=== PATIENT | male | born 1955 | race Two or more races ===

== ENCOUNTER 2016-05-18 12:57 | Emergency (ER) | payer OTHER ==
[~2016-05-18] VITALS: Ht 170.2 cm; Wt 90.7 kg
[~2016-05-18 12:57] MED LIST: ATOR20TA50 PO; CLOP75TA28 PO; HYDR25TA4 PO; LIS20T PO
[2016-05-18 14:30] VITALS: BP 145/83
== END 2016-05-18 15:02 | disposition home or self-care (01) ==
LOC: ER 12:57
DX: M10.062 Idiopathic gout, left knee (principal); E78.5 Hyperlipidemia, unspecified; I10 Essential (primary) hypertension; Z88.6 Allergy status to analgesic agent

== ENCOUNTER → 2016-06-05 | Outpatient (CLI) | payer OTHER ==
[2016-06-05 09:39] LABS: Basophils # (auto) 0 uL; Basophils % (auto) 0.4 % (0.0-2.0); Eosinophils # (auto) 0.1 uL; Eosinophils % (auto) 1.5 % (0.0-7.0); Hematocrit 45.6 % (41.0-53.0); Hemoglobin 15.3 g/dL (13.5-17.5); Lymphocytes # (auto) 1.9 uL; Lymphocytes % (auto) 23.3 % (10.0-50.0); Mean Corpuscular Hemoglobin 29.9 pg (28.0-32.0); Mean Corpuscular Hgb Conc. 33.6 g/dL (32.0-36.0); Mean Corpuscular Volume 88.8 fL (80.0-100.0); Mean Platelet Volume 9.8 fL (7.4-10.4); Monocytes # (auto) 0.7 uL; Monocytes % (auto) 8.9 % (0.0-12.0); Neutrophils # (auto) 5.4 uL; Neutrophils % (auto) 65.9 % (37.0-80.0); Platelet Count (auto) 267 10^3/uL (140-450); Red Cell Distribution Width 12.9 % (11.6-16.0); White Blood Cell 8.2 10^3/uL (4.4-10.8)
[2016-06-05 09:42] LABS: Urine Bilirubin Negative (Negative); Urine Blood Negative /uL (Negative); Urine Color Yellow (Yellow); Urine Glucose Normal (Normal); Urine Ketone Negative (Negative); Urine Mucus FEW (None Seen); Urine Nitrite Negative (Negative); Urine RBC <1 /hpf (0 - 3); Urine Squamous Epithelial Cell FEW /hpf (<5); Urine Urobilinogen Normal (Negative)
[2016-06-05 10:09] LABS: Albumin 3.8 g/dL (3.4-5.0); BUN/Creatinine Ratio 24.2; Bilirubin, Total 0.9 mg/dL (0.2-1.0); Calcium 8.9 mg/dL (8.5-10.1); Potassium 4.1 mmol/L (3.5-5.1); Uric Acid 7.9 mg/dL (3.5-7.2)
== END | disposition home or self-care (01) ==
LOC: LAB 08:01
DX: I10 Essential (primary) hypertension (principal); Z12.5 Encounter for screening for malignant neoplasm of prostate; Z12.11 Encounter for screening for malignant neoplasm of colon
CPT/HCPCS: 36415; 80053; 80061; 81001; 82270; 84153; 84443; 84550; 85025

== ENCOUNTER 2022-01-22 02:57 | Inpatient (IN) | payer OTHER ==
[~2022-01-22] VITALS: Ht 170.2 cm; Wt 85.3 kg
[2022-01-22] VITALS (80 sets, daily range): BP systolic 85–137; BP diastolic 54–97
[2022-01-22] MEDS ORDERED: ETOMIDATE (2MG/ML) 20ML VIAL IV ONE ×2 (03:00→03:08)
[2022-01-22] MEDS ORDERED: CALCIUM CHL 100MG/ML 1,000 MG in D5W 5% 100 ML IV ONE (03:00)
[2022-01-22] MEDS ORDERED: ATROPINE SULF 1 MG/10ml SYR IV ONE (03:00)
[2022-01-22] MEDS ORDERED: ROCURONIUM 10MG/ML 10ML VIAL IV ONE (03:00)
[2022-01-22] MEDS ORDERED: ATROPINE SULFATE 1 MG/1 ML VIAL ONE (03:02)
[2022-01-22] MEDS ORDERED: SODIUM BICARBONATE 8.4% INJ 50ML SYRINGE ONE (03:04)
[2022-01-22] MEDS ORDERED: CALCIUM CHLOR(10%) 100MG/ML 10ML SYRINGE IV ONE (03:04)
[2022-01-22] MEDS ORDERED: SUCCINYLCHOLINE CHLORIDE 20 MG/ML 10ML VIAL IV ONE ×2 (03:08→03:45)
[2022-01-22] MEDS ORDERED: MIDAZOLAM DRIP 50 mg/50mL 50 ML IV ONE (03:16)
[2022-01-22] MEDS: MIDAZOLAM DRIP 50 mg/50mL 50 ML IV SCH ×4 (03:20→20:00)
[2022-01-22] MEDS ORDERED: SODIUM BICARBONATE 8.4 % INJ 50ML VIAL IV ONE (03:30)
[2022-01-22] MEDS ORDERED: HEPARIN SODIUM (PORCINE) 5000 UNITS/ML 1ML VIAL IV ONE (03:30)
[2022-01-22 03:37] LABS: Basophils # (auto) 0.1 10 ^3/uL (0-0.2); Basophils % (auto) 0.8 % (0.0-2.0); Eosinophils # (auto) 0.1 10 ^3/uL (0-0.8); Eosinophils % (auto) 0.8 % (0.0-7.0); Hematocrit 43.1 % (41.0-53.0); Hemoglobin 14.8 g/dL (13.5-17.5); Lymphocytes # (auto) 2.3 10 ^3/uL (0.4-5.4); Lymphocytes % (auto) 13.7 % (10.0-50.0); Mean Corpuscular Hemoglobin 30.1 pg (28.0-32.0); Mean Corpuscular Hgb Conc. 34.4 g/dL (32.0-36.0); Mean Corpuscular Volume 87.3 fL (80.0-100.0); Monocytes # (auto) 1.7 10 ^3/uL (0-1.3); Monocytes % (auto) 10.1 % (0.0-12.0); Neutrophils # (auto) 12.6 10 ^3/uL (1.6-8.6); Neutrophils % (auto) 74.6 % (37.0-80.0); Nucleated Red Blood Cells % 0.1 %; Red Blood Cells 4.93 10^6/uL (4.5-5.90); White Blood Cell 16.8 10^3/uL (4.4-10.8)
[2022-01-22] MEDS ORDERED: LIDOCAINE 2%HCL (LOCAL ANESTH.) INJ 20ML MDV ONE (03:52)
[2022-01-22] MEDS ORDERED: IODIXANOL 320MG/ML 100ML BTL IV ONE ×2 (03:52→05:06)
[2022-01-22 03:57] LABS: Albumin 3.1 g/dL (3.4-5.0); BUN/Creatinine Ratio 11.9; Potassium 3.6 mmol/L (3.5-5.1)
[2022-01-22 04:00] LABS: Lactic Acid w/Reflex 2.7 mmol/L (0.4-2.0)
[2022-01-22 04:10] LABS: INR 1.03 (0.9-1.15); Partial Thromboplastin Time 25.7 sec (24.6-33.4)
[2022-01-22] MEDS ORDERED: SODIUM CHL 0.9% 50 ML ONE (04:16)
[2022-01-22] MEDS ORDERED: ANGIOMAX 250 MG VIAL IV ONE (04:16)
[2022-01-22] MEDS ORDERED: ATROPINE SULF 1 MG/10ml SYR ONE (04:21)
[2022-01-22 04:22] LABS: Bilirubin, Total 0.7 mg/dL (0.2-1.0); Total Protein 6.3 g/dL (6.4-8.2)
[2022-01-22] MEDS ORDERED: niCARdipine 25 MG/10 ML VIAL IV ONE (04:41)
[2022-01-22] MEDS ORDERED: MORPHINE SULFATE INJ 2 MG/ml SYRG IV PRN (05:00)
[2022-01-22] MEDS ORDERED: NITROGLYCERIN 0.4 MG SL TAB SL PRN (05:00)
[2022-01-22] MEDS ORDERED: fentaNYL CITRATE 100 MCG/2 ML VL ONE (05:01)
[2022-01-22] MEDS ORDERED: NOREPINEPHRINE 8 MG/250ML KIT 250 ML IV ONE (05:09)
[2022-01-22] MEDS ORDERED: TICAGRELOR 90 MG TAB ONE ×2 (05:25→05:28)
[2022-01-22] MEDS ORDERED: NOREPINEPHRINE 8 MG/250ML KIT 250 ML IV SCH (05:30)
[2022-01-22] MEDS: SODIUM CHLORIDE 0.9% 1,000 ML IV SCH ×2 (05:45→12:33)
[2022-01-22] MEDS ORDERED: MIDAZOLAM HCL 2MG/2ML 2ml VIAL (1mg/ml) IV PRN (05:45)
[2022-01-22] MEDS: NOREPINEPHRINE 8 MG/250ML KIT 250 ML IV SCH (05:55)
[2022-01-22] MEDS: PIPERACILLIN-TAZOB 3.375GM 100 ML IV SCH ×3 (06:00→22:01)
[2022-01-22] MEDS: fentaNYL Drip 2500mCg/250mlNS 250 ML IV SCH (06:10)
[2022-01-22] MEDS: ENOXAPARIN SOD 40 MG/0.4 ML SYRINGE SC SCH (09:54)
[2022-01-22] MEDS: PANTOPRAZOLE 40 MG/10 ML VIAL INJ IV SCH ×2 (09:54→22:01)
[2022-01-22] MEDS ORDERED: TICAGRELOR 90 MG TAB PO SCH (10:00)
[2022-01-22] MEDS: TICAGRELOR 90 MG TAB GT SCH ×2 (10:00→22:01)
[2022-01-23] VITALS (101 sets, daily range): BP systolic 84–157; BP diastolic 51–91
[2022-01-23] MEDS: MIDAZOLAM DRIP 50 mg/50mL 50 ML IV SCH ×2 (00:32→06:32)
[2022-01-23] MEDS: SODIUM CHLORIDE 0.9% 1,000 ML IV SCH ×3 (00:40→16:49)
[2022-01-23 04:15] LABS: Basophils # (auto) 0 10 ^3/uL (0-0.2); Basophils % (auto) 0.2 % (0.0-2.0); Eosinophils # (auto) 0 10 ^3/uL (0-0.8); Eosinophils % (auto) 0.3 % (0.0-7.0); Hematocrit 38.7 % (41.0-53.0); Hemoglobin 13.1 g/dL (13.5-17.5); Lymphocytes # (auto) 1.2 10 ^3/uL (0.4-5.4); Lymphocytes % (auto) 10.5 % (10.0-50.0); Mean Corpuscular Hemoglobin 30.2 pg (28.0-32.0); Mean Corpuscular Hgb Conc. 33.9 g/dL (32.0-36.0); Mean Corpuscular Volume 89.1 fL (80.0-100.0); Monocytes # (auto) 1.5 10 ^3/uL (0-1.3); Monocytes % (auto) 13.2 % (0.0-12.0); Neutrophils # (auto) 8.4 10 ^3/uL (1.6-8.6); Neutrophils % (auto) 75.8 % (37.0-80.0); Red Blood Cells 4.35 10^6/uL (4.5-5.90); Red Cell Distribution Width 13.1 % (11.8-14.3); White Blood Cell 11.1 10^3/uL (4.4-10.8)
[2022-01-23 04:28] LABS: BUN/Creatinine Ratio 16.4; Calcium 7.7 mg/dL (8.5-10.1); Potassium 4.3 mmol/L (3.5-5.1)
[2022-01-23 04:30] LABS: Bilirubin, Total 1.3 mg/dL (0.2-1.0); Total Protein 5.7 g/dL (6.4-8.2)
[2022-01-23] MEDS: fentaNYL Drip 2500mCg/250mlNS 250 ML IV SCH (05:10)
[2022-01-23] MEDS: NOREPINEPHRINE 8 MG/250ML KIT 250 ML IV SCH (05:11)
[2022-01-23] MEDS: PIPERACILLIN-TAZOB 3.375GM 100 ML IV SCH ×3 (05:32→21:43)
[2022-01-23] MEDS ORDERED: SODIUM CHLORIDE 0.9% 2,000 ML IV ONE (09:30)
[2022-01-23] MEDS: ENOXAPARIN SOD 40 MG/0.4 ML SYRINGE SC SCH (09:58)
[2022-01-23] MEDS: PANTOPRAZOLE 40 MG/10 ML VIAL INJ IV SCH ×2 (09:58→21:43)
[2022-01-23] MEDS: TICAGRELOR 90 MG TAB GT SCH ×2 (09:59→21:43)
[2022-01-23] MEDS ORDERED: ACETAMINOPHEN 650 mg PER 20.3 mL UD PO PRN (17:45)
[2022-01-23] MEDS: ACETAMINOPHEN 650 mg PER 20.3 mL UD PO PRN (18:19)
[2022-01-24] VITALS (99 sets, daily range): BP systolic 76–158; BP diastolic 44–92
[2022-01-24] MEDS: SODIUM CHLORIDE 0.9% 1,000 ML IV SCH ×3 (00:28→18:10)
[2022-01-24] MEDS: NOREPINEPHRINE 8 MG/250ML KIT 250 ML IV SCH (02:16)
[2022-01-24] MEDS: fentaNYL Drip 2500mCg/250mlNS 250 ML IV SCH ×3 (02:17→20:05)
[2022-01-24 04:19] LABS: Basophils # (auto) 0 10 ^3/uL (0-0.2); Basophils % (auto) 0.3 % (0.0-2.0); Eosinophils # (auto) 0 10 ^3/uL (0-0.8); Eosinophils % (auto) 0.5 % (0.0-7.0); Hematocrit 35.6 % (41.0-53.0); Hemoglobin 12.2 g/dL (13.5-17.5); Lymphocytes # (auto) 0.8 10 ^3/uL (0.4-5.4); Lymphocytes % (auto) 9.4 % (10.0-50.0); Mean Corpuscular Hemoglobin 30.6 pg (28.0-32.0); Mean Corpuscular Hgb Conc. 34.2 g/dL (32.0-36.0); Mean Corpuscular Volume 89.3 fL (80.0-100.0); Monocytes # (auto) 0.9 10 ^3/uL (0-1.3); Monocytes % (auto) 11.6 % (0.0-12.0); Neutrophils # (auto) 6.3 10 ^3/uL (1.6-8.6); Neutrophils % (auto) 78.2 % (37.0-80.0); Red Blood Cells 3.98 10^6/uL (4.5-5.90); Red Cell Distribution Width 13.1 % (11.8-14.3); White Blood Cell 8.1 10^3/uL (4.4-10.8)
[2022-01-24 04:44] LABS: Albumin 2.5 g/dL (3.4-5.0); BUN/Creatinine Ratio 31.1; Calcium 7.1 mg/dL (8.5-10.1); Potassium 4.1 mmol/L (3.5-5.1)
[2022-01-24 04:46] LABS: Bilirubin, Total 1.1 mg/dL (0.2-1.0); Total Protein 5.1 g/dL (6.4-8.2)
[2022-01-24] MEDS: PIPERACILLIN-TAZOB 3.375GM 100 ML IV SCH ×3 (05:45→22:19)
[2022-01-24] MEDS ORDERED: ATROPINE SULFATE 1 MG/1 ML VIAL ONE (06:39)
[2022-01-24] MEDS: PANTOPRAZOLE 40 MG/10 ML VIAL INJ IV SCH ×2 (10:18→22:19)
[2022-01-24] MEDS: TICAGRELOR 90 MG TAB GT SCH ×2 (10:19→22:19)
[2022-01-24] MEDS: ENOXAPARIN SOD 40 MG/0.4 ML SYRINGE SC SCH (10:19)
[2022-01-24] MEDS: ACETAMINOPHEN 650 mg PER 20.3 mL UD PO PRN (16:05)
[2022-01-25] VITALS (92 sets, daily range): BP systolic 91–218; BP diastolic 55–110
[2022-01-25] MEDS: SODIUM CHLORIDE 0.9% 1,000 ML IV SCH ×4 (01:00→21:45)
[2022-01-25] MEDS: NOREPINEPHRINE 8 MG/250ML KIT 250 ML IV SCH (05:31)
[2022-01-25 05:34] LABS: Basophils # (auto) 0 10 ^3/uL (0-0.2); Basophils % (auto) 0.2 % (0.0-2.0); Eosinophils # (auto) 0.1 10 ^3/uL (0-0.8); Eosinophils % (auto) 0.5 % (0.0-7.0); Hematocrit 36.6 % (41.0-53.0); Hemoglobin 12.4 g/dL (13.5-17.5); Lymphocytes # (auto) 1.1 10 ^3/uL (0.4-5.4); Mean Corpuscular Hemoglobin 30.6 pg (28.0-32.0); Mean Corpuscular Hgb Conc. 33.9 g/dL (32.0-36.0); Mean Corpuscular Volume 90.3 fL (80.0-100.0); Monocytes # (auto) 1.4 10 ^3/uL (0-1.3); Monocytes % (auto) 14.3 % (0.0-12.0); Neutrophils # (auto) 7.4 10 ^3/uL (1.6-8.6); Red Blood Cells 4.05 10^6/uL (4.5-5.90); White Blood Cell 10.1 10^3/uL (4.4-10.8)
[2022-01-25] MEDS: PIPERACILLIN-TAZOB 3.375GM 100 ML IV SCH (06:00)
[2022-01-25 06:04] LABS: Albumin 2.3 g/dL (3.4-5.0); Calcium 7.2 mg/dL (8.5-10.1); Potassium 4.3 mmol/L (3.5-5.1)
[2022-01-25 06:09] LABS: BUN/Creatinine Ratio 26.4
[2022-01-25 06:10] LABS: Bilirubin, Total 0.8 mg/dL (0.2-1.0); Total Protein 5.7 g/dL (6.4-8.2)
[2022-01-25] MEDS: fentaNYL Drip 2500mCg/250mlNS 250 ML IV SCH ×2 (07:08→20:09)
[2022-01-25] MEDS: MIDAZOLAM DRIP 50 mg/50mL 50 ML IV SCH ×3 (07:39→21:15)
[2022-01-25] MEDS: TICAGRELOR 90 MG TAB GT SCH ×2 (09:53→22:06)
[2022-01-25] MEDS: ENOXAPARIN SOD 40 MG/0.4 ML SYRINGE SC SCH (09:53)
[2022-01-25] MEDS: PANTOPRAZOLE 40 MG/10 ML VIAL INJ IV SCH ×2 (09:53→22:07)
[2022-01-25] MEDS: levoFLOXacin 750MG 150 ML IV SCH (11:00)
[2022-01-25] MEDS: ACETAMINOPHEN 650 mg PER 20.3 mL UD PO PRN (16:05)
[2022-01-25] MEDS: chlordiazePOXIDE HCL 25 MG CAP PO SCH (22:07)
[2022-01-26] VITALS (107 sets, daily range): BP systolic 106–186; BP diastolic 57–96
[2022-01-26] MEDS: MIDAZOLAM DRIP 50 mg/50mL 50 ML IV SCH ×2 (01:37→07:15)
[2022-01-26] MEDS: SODIUM CHLORIDE 0.9% 1,000 ML IV SCH ×3 (01:48→21:45)
[2022-01-26 03:38] LABS: Basophils # (auto) 0 10 ^3/uL (0-0.2); Basophils % (auto) 0.4 % (0.0-2.0); Eosinophils # (auto) 0.1 10 ^3/uL (0-0.8); Eosinophils % (auto) 1.6 % (0.0-7.0); Hematocrit 32.7 % (41.0-53.0); Hemoglobin 11.3 g/dL (13.5-17.5); Lymphocytes # (auto) 0.5 10 ^3/uL (0.4-5.4); Lymphocytes % (auto) 8.6 % (10.0-50.0); Mean Corpuscular Hemoglobin 31.2 pg (28.0-32.0); Mean Corpuscular Hgb Conc. 34.7 g/dL (32.0-36.0); Monocytes # (auto) 0.6 10 ^3/uL (0-1.3); Monocytes % (auto) 11.9 % (0.0-12.0); Neutrophils # (auto) 4.2 10 ^3/uL (1.6-8.6); Neutrophils % (auto) 77.5 % (37.0-80.0); Nucleated Red Blood Cells % 0.1 %; Red Blood Cells 3.64 10^6/uL (4.5-5.90); Red Cell Distribution Width 12.9 % (11.8-14.3); White Blood Cell 5.4 10^3/uL (4.4-10.8)
[2022-01-26 03:54] LABS: Albumin 2.1 g/dL (3.4-5.0); Potassium 4.1 mmol/L (3.5-5.1)
[2022-01-26 03:58] LABS: BUN/Creatinine Ratio 30.8; Bilirubin, Total 0.7 mg/dL (0.2-1.0); Total Protein 4.5 g/dL (6.4-8.2)
[2022-01-26] MEDS: NOREPINEPHRINE 8 MG/250ML KIT 250 ML IV SCH (05:45)
[2022-01-26] MEDS: chlordiazePOXIDE HCL 25 MG CAP PO SCH ×3 (06:10→21:45)
[2022-01-26] MEDS: TICAGRELOR 90 MG TAB GT SCH ×2 (10:06→21:44)
[2022-01-26] MEDS: PANTOPRAZOLE 40 MG/10 ML VIAL INJ IV SCH (10:07)
[2022-01-26] MEDS: ENOXAPARIN SOD 40 MG/0.4 ML SYRINGE SC SCH (10:07)
[2022-01-26] MEDS: levoFLOXacin 750MG 150 ML IV SCH (10:07)
[2022-01-26] MEDS: hydrALAZINE HCL 20 MG/ML VL IV PRN ×3 (12:48→21:44)
[2022-01-26] MEDS: ACETAMINOPHEN 650 mg PER 20.3 mL UD PO PRN (17:28)
[2022-01-27] VITALS (88 sets, daily range): BP systolic 116–186; BP diastolic 62–109
[2022-01-27] MEDS: MIDAZOLAM DRIP 50 mg/50mL 50 ML IV SCH ×3 (03:15→19:58)
[2022-01-27] MEDS: fentaNYL Drip 2500mCg/250mlNS 250 ML IV SCH (05:00)
[2022-01-27] MEDS: NOREPINEPHRINE 8 MG/250ML KIT 250 ML IV SCH (05:45)
[2022-01-27] MEDS: SODIUM CHLORIDE 0.9% 1,000 ML IV SCH ×3 (05:45→21:46)
[2022-01-27] MEDS: chlordiazePOXIDE HCL 25 MG CAP PO SCH ×4 (06:00→22:00)
[2022-01-27] MEDS: hydrALAZINE HCL 20 MG/ML VL IV PRN (06:26)
[2022-01-27] MEDS ORDERED: ISOPROTERENOL HCL INJECTION 1 MG in D5W 5% 250 ML IV SCH (07:15)
[2022-01-27 08:52] LABS: INR 1.17 (0.9-1.15); Partial Thromboplastin Time 29.3 sec (24.6-33.4)
[2022-01-27] MEDS: TICAGRELOR 90 MG TAB GT SCH ×2 (10:00→21:44)
[2022-01-27] MEDS: ENOXAPARIN SOD 40 MG/0.4 ML SYRINGE SC SCH (10:00)
[2022-01-27] MEDS: levoFLOXacin 750MG 150 ML IV SCH (10:56)
[2022-01-27] MEDS: PANTOPRAZOLE 40 MG/10 ML VIAL INJ IV SCH (10:57)
[2022-01-27] MEDS ORDERED: LIDOCAINE 2%HCL (LOCAL ANESTH.) INJ 10ml MDV ONE (15:08)
[2022-01-27] MEDS ORDERED: VANCOMYCIN HCL 1000 MG VL ONE ×2 (15:44→15:47)
[2022-01-27] MEDS ORDERED: VANCOMYCIN 1GM/250ML 250 ML IV ONE (15:44)
[2022-01-27] MEDS ORDERED: IOHEXOL 350 MG/ML 100ML IJ ONE (16:01)
[2022-01-27] MEDS: VANCOMYCIN 1GM/250ML 250 ML IV SCH (21:45)
[2022-01-28] VITALS (103 sets, daily range): BP systolic 114–187; BP diastolic 22–98
[2022-01-28] MEDS: fentaNYL Drip 2500mCg/250mlNS 250 ML IV SCH ×2 (00:19→19:00)
[2022-01-28] MEDS: hydrALAZINE HCL 20 MG/ML VL IV PRN ×3 (03:06→18:57)
[2022-01-28] MEDS: MIDAZOLAM DRIP 50 mg/50mL 50 ML IV SCH ×3 (03:07→16:31)
[2022-01-28 04:45] LABS: Basophils # (auto) 0 10 ^3/uL (0-0.2); Basophils % (auto) 0.3 % (0.0-2.0); Eosinophils # (auto) 0.2 10 ^3/uL (0-0.8); Hematocrit 35.6 % (41.0-53.0); Hemoglobin 12.2 g/dL (13.5-17.5); Lymphocytes # (auto) 0.7 10 ^3/uL (0.4-5.4); Lymphocytes % (auto) 8.9 % (10.0-50.0); Mean Corpuscular Hemoglobin 30.3 pg (28.0-32.0); Mean Corpuscular Hgb Conc. 34.2 g/dL (32.0-36.0); Mean Corpuscular Volume 88.5 fL (80.0-100.0); Monocytes # (auto) 0.9 10 ^3/uL (0-1.3); Monocytes % (auto) 12.3 % (0.0-12.0); Neutrophils # (auto) 5.8 10 ^3/uL (1.6-8.6); Neutrophils % (auto) 76.5 % (37.0-80.0); Red Blood Cells 4.02 10^6/uL (4.5-5.90); Red Cell Distribution Width 12.9 % (11.8-14.3); White Blood Cell 7.6 10^3/uL (4.4-10.8)
[2022-01-28 04:59] LABS: Potassium 3.5 mmol/L (3.5-5.1)
[2022-01-28 05:00] LABS: Calcium 7.8 mg/dL (8.5-10.1)
[2022-01-28] MEDS: chlordiazePOXIDE HCL 25 MG CAP PO SCH ×2 (05:27→10:02)
[2022-01-28] MEDS: NOREPINEPHRINE 8 MG/250ML KIT 250 ML IV SCH (05:45)
[2022-01-28] MEDS: SODIUM CHLORIDE 0.9% 1,000 ML IV SCH ×3 (05:45→21:54)
[2022-01-28] MEDS: levoFLOXacin 750MG 150 ML IV SCH (10:00)
[2022-01-28] MEDS: TICAGRELOR 90 MG TAB GT SCH ×2 (10:12→21:54)
[2022-01-28] MEDS: VANCOMYCIN 1GM/250ML 250 ML IV SCH (10:12)
[2022-01-28] MEDS: PANTOPRAZOLE 40 MG/10 ML VIAL INJ IV SCH (10:12)
[2022-01-28] MEDS: ENOXAPARIN SOD 40 MG/0.4 ML SYRINGE SC SCH (10:12)
[2022-01-28] MEDS ORDERED: FUROSEMIDE 40 MG/4 ML VIAL IV ONE (10:15)
[2022-01-28] MEDS ORDERED: FUROSEMIDE 40 MG/4 ML VIAL ONE (10:17)
[2022-01-29] VITALS (102 sets, daily range): BP systolic 106–183; BP diastolic 58–99
[2022-01-29] MEDS: hydrALAZINE HCL 20 MG/ML VL IV PRN ×3 (00:52→22:06)
[2022-01-29] MEDS: MIDAZOLAM DRIP 50 mg/50mL 50 ML IV SCH ×2 (00:52→06:26)
[2022-01-29 04:41] LABS: Basophils # (auto) 0 10 ^3/uL (0-0.2); Basophils % (auto) 0.1 % (0.0-2.0); Eosinophils # (auto) 0.1 10 ^3/uL (0-0.8); Eosinophils % (auto) 0.7 % (0.0-7.0); Hematocrit 32.2 % (41.0-53.0); Hemoglobin 11.2 g/dL (13.5-17.5); Lymphocytes # (auto) 0.5 10 ^3/uL (0.4-5.4); Lymphocytes % (auto) 6.7 % (10.0-50.0); Mean Corpuscular Hemoglobin 30.6 pg (28.0-32.0); Mean Corpuscular Hgb Conc. 34.8 g/dL (32.0-36.0); Mean Corpuscular Volume 87.9 fL (80.0-100.0); Monocytes # (auto) 0.7 10 ^3/uL (0-1.3); Neutrophils # (auto) 6.3 10 ^3/uL (1.6-8.6); Neutrophils % (auto) 83.5 % (37.0-80.0); Red Blood Cells 3.66 10^6/uL (4.5-5.90); Red Cell Distribution Width 12.8 % (11.8-14.3); White Blood Cell 7.5 10^3/uL (4.4-10.8)
[2022-01-29 04:57] LABS: Calcium 7.4 mg/dL (8.5-10.1); Potassium 3.1 mmol/L (3.5-5.1)
[2022-01-29 04:59] LABS: BUN/Creatinine Ratio 28.6
[2022-01-29] MEDS: SODIUM CHLORIDE 0.9% 1,000 ML IV SCH (05:45)
[2022-01-29] MEDS: NOREPINEPHRINE 8 MG/250ML KIT 250 ML IV SCH (05:45)
[2022-01-29] MEDS: PANTOPRAZOLE 40 MG/10 ML VIAL INJ IV SCH (10:04)
[2022-01-29] MEDS: ENOXAPARIN SOD 40 MG/0.4 ML SYRINGE SC SCH (10:04)
[2022-01-29] MEDS: TICAGRELOR 90 MG TAB GT SCH ×2 (10:05→21:17)
[2022-01-29] MEDS: levoFLOXacin 750MG 150 ML IV SCH (10:05)
[2022-01-29] MEDS: POTASSIUM CHL 20MEQ/100ML 100 ML IV SCH ×2 (10:32→12:09)
[2022-01-29] MEDS ORDERED: TPN PER PHARMACY 0 ML IV SCH (19:30)
[2022-01-29] MEDS ORDERED: AMINO ACID INFUSION IN D10W 1,000 ML IV NR (21:00)
[2022-01-30] VITALS (85 sets, daily range): BP systolic 118–219; BP diastolic 64–108
[2022-01-30] MEDS ORDERED: DEXTROSE (50%) 50ML SYRG IV SCH
[2022-01-30] MEDS: InsuLIN REG 1unit/0.01ml Soln (100units/ml) SC SCH ×4 (00:11→18:41)
[2022-01-30] MEDS: ACCU-CHEK COMFORT CURVE STRIP VI SCH ×4 (00:11→18:02)
[2022-01-30] MEDS: fentaNYL Drip 2500mCg/250mlNS 250 ML IV SCH (01:10)
[2022-01-30] MEDS: MIDAZOLAM DRIP 50 mg/50mL 50 ML IV SCH ×3 (01:15→21:15)
[2022-01-30 04:51] LABS: Basophils # (auto) 0.1 10 ^3/uL (0-0.2); Basophils % (auto) 0.5 % (0.0-2.0); Eosinophils # (auto) 0.2 10 ^3/uL (0-0.8); Eosinophils % (auto) 1.7 % (0.0-7.0); Hematocrit 36.1 % (41.0-53.0); Hemoglobin 12.2 g/dL (13.5-17.5); Lymphocytes # (auto) 0.8 10 ^3/uL (0.4-5.4); Lymphocytes % (auto) 7.7 % (10.0-50.0); Mean Corpuscular Hemoglobin 30.1 pg (28.0-32.0); Mean Corpuscular Hgb Conc. 33.8 g/dL (32.0-36.0); Monocytes # (auto) 1.1 10 ^3/uL (0-1.3); Monocytes % (auto) 10.3 % (0.0-12.0); Neutrophils # (auto) 8.5 10 ^3/uL (1.6-8.6); Neutrophils % (auto) 79.8 % (37.0-80.0); Nucleated Red Blood Cells % 0.2 %; Red Blood Cells 4.05 10^6/uL (4.5-5.90); Red Cell Distribution Width 13.1 % (11.8-14.3); White Blood Cell 10.7 10^3/uL (4.4-10.8)
[2022-01-30] MEDS: NOREPINEPHRINE 8 MG/250ML KIT 250 ML IV SCH (05:45)
[2022-01-30 05:50] LABS: BUN/Creatinine Ratio 25.9; Potassium 3.4 mmol/L (3.5-5.1)
[2022-01-30 05:51] LABS: Bilirubin, Total 2.7 mg/dL (0.2-1.0); Calcium 7.7 mg/dL (8.5-10.1); Magnesium 2.1 mg/dL (1.6-2.6); Phosphorus 2.1 mg/dL (2.5-4.90); Total Protein 5.1 g/dL (6.4-8.2)
[2022-01-30] MEDS: TICAGRELOR 90 MG TAB GT SCH ×2 (10:00→22:00)
[2022-01-30 10:38] LABS: INR 1.11 (0.9-1.15); Partial Thromboplastin Time 23.9 sec (24.6-33.4)
[2022-01-30] MEDS: PANTOPRAZOLE 40 MG/10 ML VIAL INJ IV SCH (10:47)
[2022-01-30] MEDS: levoFLOXacin 750MG 150 ML IV SCH (10:48)
[2022-01-30] MEDS ORDERED: FUROSEMIDE 40 MG/4 ML VIAL IV ONE (11:15)
[2022-01-30] MEDS: POTASSIUM CHL 20MEQ/100ML 100 ML IV SCH ×2 (13:00→15:22)
[2022-01-30] MEDS ORDERED: LIDOCAINE 1% (LOCAL ANESTH.) PF 5ml SDV ID ONE (13:00)
[2022-01-30] MEDS ORDERED: SODIUM PHOSPH 24MEQ(18MMOL) IN NS 100 ML IV ONE (14:00)
[2022-01-30] MEDS ORDERED: chlorproMAZINE HCL 25 MG/1 ML AMP IV ONE (14:30)
[2022-01-30] MEDS: hydrALAZINE HCL 20 MG/ML VL IV PRN ×2 (14:42→18:50)
[2022-01-30] MEDS: ENOXAPARIN SOD 40 MG/0.4 ML SYRINGE SC SCH (15:38)
[2022-01-30] MEDS ORDERED: PPN PER PHARMACY IV NR ×8 (20:00)
[2022-01-30] MEDS: SODIUM CHLOR 0.9% PF (SALINE LOCK) 10ML VIAL/SYR IV SCH (22:00)
[2022-01-31] VITALS (29 sets, daily range): BP systolic 128–196; BP diastolic 60–105
[2022-01-31] MEDS: ACCU-CHEK COMFORT CURVE STRIP VI SCH ×5 (00:15→23:49)
[2022-01-31] MEDS: InsuLIN REG 1unit/0.01ml Soln (100units/ml) SC SCH ×5 (00:19→23:50)
[2022-01-31] MEDS: hydrALAZINE HCL 20 MG/ML VL IV PRN ×2 (00:34→08:59)
[2022-01-31] MEDS: ACETAMINOPHEN 650 mg PER 20.3 mL UD PO PRN (02:36)
[2022-01-31 03:53] LABS: Albumin 2.3 g/dL (3.4-5.0); Calcium 7.8 mg/dL (8.5-10.1); Magnesium 2.1 mg/dL (1.6-2.6); Potassium 3.3 mmol/L (3.5-5.1)
[2022-01-31 03:56] LABS: BUN/Creatinine Ratio 18.8; Bilirubin, Total 3.8 mg/dL (0.2-1.0); Phosphorus 1.8 mg/dL (2.5-4.90); Total Protein 5.6 g/dL (6.4-8.2)
[2022-01-31] MEDS: POTASSIUM CHL 20MEQ/100ML 100 ML IV PRN ×2 (04:52→06:53)
[2022-01-31] MEDS: fentaNYL Drip 2500mCg/250mlNS 250 ML IV SCH (05:00)
[2022-01-31] MEDS: NOREPINEPHRINE 8 MG/250ML KIT 250 ML IV SCH (05:45)
[2022-01-31] MEDS: MIDAZOLAM DRIP 50 mg/50mL 50 ML IV SCH ×2 (07:15→16:18)
[2022-01-31] MEDS: SODIUM CHLOR 0.9% PF (SALINE LOCK) 10ML VIAL/SYR IV SCH ×2 (10:00→21:32)
[2022-01-31] MEDS: TICAGRELOR 90 MG TAB GT SCH ×2 (10:00→21:31)
[2022-01-31] MEDS ORDERED: chlorproMAZINE HCL 25 MG/1 ML AMP IV ONE (10:30)
[2022-01-31] MEDS ORDERED: SODIUM CHL 0.9% IV ONE (10:45)
[2022-01-31] MEDS ORDERED: [UNRECOGNIZED DRUG - OTHER] IV ONE (10:45)
[2022-01-31] MEDS: PANTOPRAZOLE 40 MG/10 ML VIAL INJ IV SCH (10:52)
[2022-01-31] MEDS: levoFLOXacin 750MG 150 ML IV SCH (10:52)
[2022-01-31] MEDS: ENOXAPARIN SOD 40 MG/0.4 ML SYRINGE SC SCH (10:53)
[2022-01-31] MEDS: METOPROLOL TARTRATE 50 MG TAB PO SCH (18:05)
[2022-01-31] MEDS ORDERED: POTASSIUM PHOSPHATE 44 MEQ in D5W 5% 250 ML IV ONE (18:30)
[2022-01-31] MEDS: LABETALOL HCL 5 MG/ML 4ML SYRINGE IV PRN ×2 (18:43→22:16)
[2022-01-31] MEDS ORDERED: TPN PER PHARMACY IV NR ×9 (20:00)
[2022-01-31] MEDS ORDERED: METOPROLOL TARTRATE 50 MG TAB PO SCH (22:00)
[2022-02-01] VITALS (23 sets, daily range): BP systolic 141–197; BP diastolic 76–108
[2022-02-01] MEDS: LABETALOL HCL 5 MG/ML 4ML SYRINGE IV PRN ×5 (01:43→17:55)
[2022-02-01 04:51] LABS: Albumin 2.3 g/dL (3.4-5.0); BUN/Creatinine Ratio 23.7; Calcium 8.1 mg/dL (8.5-10.1); Magnesium 2.3 mg/dL (1.6-2.6); Potassium 3.9 mmol/L (3.5-5.1)
[2022-02-01 04:54] LABS: Bilirubin, Total 2.8 mg/dL (0.2-1.0); Phosphorus 3.1 mg/dL (2.5-4.90); Total Protein 5.8 g/dL (6.4-8.2)
[2022-02-01] MEDS: ACCU-CHEK COMFORT CURVE STRIP VI SCH ×4 (05:10→23:56)
[2022-02-01] MEDS: InsuLIN REG 1unit/0.01ml Soln (100units/ml) SC SCH ×4 (05:15→23:57)
[2022-02-01] MEDS: levoFLOXacin 750MG 150 ML IV SCH (10:11)
[2022-02-01] MEDS: ENOXAPARIN SOD 40 MG/0.4 ML SYRINGE SC SCH (10:11)
[2022-02-01] MEDS: PANTOPRAZOLE 40 MG/10 ML VIAL INJ IV SCH (10:11)
[2022-02-01] MEDS: SODIUM CHLOR 0.9% PF (SALINE LOCK) 10ML VIAL/SYR IV SCH ×2 (10:12→22:00)
[2022-02-01] MEDS: METOPROLOL TARTRATE 50 MG TAB PO SCH ×2 (11:33→22:58)
[2022-02-01] MEDS: TICAGRELOR 90 MG TAB GT SCH ×2 (11:33→22:57)
[2022-02-01] MEDS ORDERED: MORPHINE SULFATE INJ 2 MG/ml SYRG IV PRN (11:45)
[2022-02-01] MEDS ORDERED: IPRATROPIUM BROM 0.5 MG/2.5ML INH SOL NEB SCH (12:00)
[2022-02-01] MEDS ORDERED: ARTIFICIAL TEARS 15ml EACHEYE PRN (16:15)
[2022-02-01 18:15] LABS: INR 1.14 (0.9-1.15)
[2022-02-01] MEDS: IPRATROPIUM BROM 0.5 MG/2.5ML INH SOL NEB SCH ×2 (18:23→22:49)
[2022-02-01] MEDS: ALBUTEROL SULF 2.5 MG/0.5ML(0.5%) NEB SOLN NEB SCH ×2 (18:24→22:49)
[2022-02-01] MEDS: TPN PER PHARMACY IV NR ×9 (20:00)
[2022-02-01] MEDS ORDERED: INSULIN LANTUS (GLARGINE) 1 /0.01ml (100units/ml) SC SCH (22:00)
[2022-02-01] MEDS: methylPREDNISolone SOD SUCC 40 MG/ML VL IV SCH (22:40)
[2022-02-01] MEDS: BUDESONIDE (INHALATION) 0.5 MG/2 ML NEB NEB SCH (22:50)
[2022-02-02] MEDS: LABETALOL HCL 5 MG/ML 4ML SYRINGE IV PRN ×2 (00:17→02:33)
[2022-02-02] MEDS: ALBUTEROL SULF 2.5 MG/0.5ML(0.5%) NEB SOLN NEB SCH ×5 (02:59→19:20)
[2022-02-02] MEDS: IPRATROPIUM BROM 0.5 MG/2.5ML INH SOL NEB SCH ×5 (02:59→19:22)
[2022-02-02 05:00] VITALS: BP 136/78
[2022-02-02] MEDS: ACCU-CHEK COMFORT CURVE STRIP VI SCH ×2 (05:25→12:08)
[2022-02-02] MEDS: InsuLIN REG 1unit/0.01ml Soln (100units/ml) SC SCH ×3 (05:27→17:56)
[2022-02-02] MEDS: methylPREDNISolone SOD SUCC 40 MG/ML VL IV SCH ×2 (05:34→14:43)
[2022-02-02 07:18] LABS: Albumin 2.5 g/dL (3.4-5.0); BUN/Creatinine Ratio 28.1; Calcium 8.5 mg/dL (8.5-10.1); Magnesium 2.6 mg/dL (1.6-2.6); Potassium 4.4 mmol/L (3.5-5.1)
[2022-02-02 09:00] VITALS: BP 143/90
[2022-02-02] MEDS: BUDESONIDE (INHALATION) 0.5 MG/2 ML NEB NEB SCH (09:47)
[2022-02-02] MEDS: PANTOPRAZOLE 40 MG/10 ML VIAL INJ IV SCH (10:48)
[2022-02-02] MEDS: levoFLOXacin 750MG 150 ML IV SCH (10:48)
[2022-02-02] MEDS: SODIUM CHLOR 0.9% PF (SALINE LOCK) 10ML VIAL/SYR IV SCH (10:48)
[2022-02-02] MEDS: ENOXAPARIN SOD 40 MG/0.4 ML SYRINGE SC SCH (10:49)
[2022-02-02] MEDS: METOPROLOL TARTRATE 50 MG TAB PO SCH (10:50)
[2022-02-02] MEDS: TICAGRELOR 90 MG TAB GT SCH (11:12)
[2022-02-02] MEDS: TPN PER PHARMACY IV NR ×9 (13:24)
[2022-02-02 13:32] VITALS: BP 131/73
[2022-02-02 17:07] VITALS: BP 129/83
[2022-02-02] MEDS ORDERED: TPN PER PHARMACY IV NR ×9 (20:00)
[2022-02-03 12:32] LABS: Hepatitis B Surface Antibody Negative (Negative)
[2022-02-03 13:09] LABS: Hepatitis A Total Antibody Positive (Negative)
== END 2022-02-02 20:10 | disposition home or self-care (01) | DRG 242 ==
LOC: EDBD 02:57 → ER 02:57 → TELE 05:00 → ICU WEST 06:13 → TELE-EAST 02-01 22:00
PROVIDERS: ADMIT Specialist; ATTEND Specialist
PROC: 027034Z Dilation of Coronary Artery, One Artery with Drug-eluting Intraluminal Device, Percutaneous Approach (ICD-10-PCS; principal; 2022-01-22)
PROC: 02C03ZZ Extirpation of Matter from Coronary Artery, One Artery, Percutaneous Approach (ICD-10-PCS; 2022-01-22)
PROC: B240ZZ3 Ultrasonography of Single Coronary Artery, Intravascular (ICD-10-PCS; 2022-01-22)
PROC: 4A023N7 Measurement of Cardiac Sampling and Pressure, Left Heart, Percutaneous Approach (ICD-10-PCS; 2022-01-22)
PROC: B2111ZZ Fluoroscopy of Multiple Coronary Arteries using Low Osmolar Contrast (ICD-10-PCS; 2022-01-22)
PROC: 04HY32Z Insertion of Monitoring Device into Lower Artery, Percutaneous Approach (ICD-10-PCS; 2022-01-22)
PROC: 4A133B1 Monitoring of Arterial Pressure, Peripheral, Percutaneous Approach (ICD-10-PCS; 2022-01-22)
PROC: 4A133J1 Monitoring of Arterial Pulse, Peripheral, Percutaneous Approach (ICD-10-PCS; 2022-01-22)
PROC: 5A1955Z Respiratory Ventilation, Greater than 96 Consecutive Hours (ICD-10-PCS; 2022-01-22)
PROC: 0BH17EZ Insertion of Endotracheal Airway into Trachea, Via Natural or Artificial Opening (ICD-10-PCS; 2022-01-22)
PROC: 02HV33Z Insertion of Infusion Device into Superior Vena Cava, Percutaneous Approach (ICD-10-PCS; 2022-01-22)
PROC: 02H63JZ Insertion of Pacemaker Lead into Right Atrium, Percutaneous Approach (ICD-10-PCS; 2022-01-27)
PROC: 0JH606Z Insertion of Pacemaker, Dual Chamber into Chest Subcutaneous Tissue and Fascia, Open Approach (ICD-10-PCS; 2022-01-27)
PROC: B5171ZA Fluoroscopy of Left Subclavian Vein using Low Osmolar Contrast, Guidance (ICD-10-PCS; 2022-01-27)
PROC: 02HK3JZ Insertion of Pacemaker Lead into Right Ventricle, Percutaneous Approach (ICD-10-PCS; 2022-01-27)
DX: I21.19 ST elevation (STEMI) myocardial infarction involving other coronary artery of inferior wall (principal); J18.9 Pneumonia, unspecified organism; J96.01 Acute respiratory failure with hypoxia; R57.0 Cardiogenic shock; I44.2 Atrioventricular block, complete; J98.11 Atelectasis; Z20.822 Contact with and (suspected) exposure to COVID-19; E11.9 Type 2 diabetes mellitus without complications; M10.9 Gout, unspecified; I10 Essential (primary) hypertension; E78.5 Hyperlipidemia, unspecified; I25.10 Atherosclerotic heart disease of native coronary artery without angina pectoris; Z79.899 Other long term (current) drug therapy; Z79.02 Long term (current) use of antithrombotics/antiplatelets; Z83.3 Family history of diabetes mellitus
CPT/HCPCS: 31500; 36415; 36556; 36569; 36600; 70450; 71045; 74018; 76705; 76881; 80048; 80053; 82805; 82962; 83036; 83605; 83735; 84100; 84478; 84484; 85025; 85610; 85730; 86704; 86706; 86708; 86803; 86850; 86900; 86901; 87040; 87070; 87077; 87081; 87186; 87205; 87340; 87426; 92610; 93005; 93306; 94002; 94003; 94640; 96365; 96375; 99152; 99153; 99291; C1785; C1874; C1887; C9113; G0378; J0330; J0461; J1815; J1956; J2001; J2250; J2543; J3480; J3490; J7060; Q9967

== ENCOUNTER → 2022-07-03 | Outpatient (CLI) | payer MEDICARE | END | disposition home or self-care (01) | LOC: LAB 13:40 | PROVIDERS: ATTEND Internal Medicine | DX: Z12.11 Encounter for screening for malignant neoplasm of colon (principal) | CPT/HCPCS: 82270 ==